=== PATIENT | male | born 1985 | race Caucasian/White ===

== ENCOUNTER 2017-08-15 11:06 | Emergency (ER) | payer SELFPAY ==
[2017-08-15 11:11] VITALS: BP 157/60; PULSE 96; RESP 22; TEMP 98.2; O2SAT 99
[2017-08-15] MEDS ORDERED: SODIUM CHLORIDE 0.9% FLUSH 10 ML FLUSH IVF PRN (11:15)
[2017-08-15] MEDS ORDERED: LORazepam 2 MG/ML VIAL IM ONE (11:15)
[2017-08-15] MEDS ORDERED: HALOPERIDOL LACTATE 5 MG/ML AMP IM ONE (11:15)
[2017-08-15 11:16] VITALS: BP 157/60; PULSE 96; RESP 22; TEMP 98.2; O2SAT 99
--- NOTE | 2017-08-15 11:39 | PD ---
HPI . Altered mental status Chief Complaint: Altered Mental Status Time Seen by Provider: 11:07 Travel History International Travel<30 days: No Contact w/Intl Traveler<30days: No Traveled to known affect area: No History of Present Illness HPI This patient is brought to us from [place] for evaluation of altered mental status. He was reportedly found naked beside his car in a parking lot. He felt that his girlfriend was with him but she is actually in [place]. This patient has no physical complaints. He denies any drug ingestion. He does admit to smoking cigarettes and smoking marijuana. He denies alcohol use. No further history is obtainable from this patient. [facility] Past Medical History Seizures: Yes ?: Not Past Surgical History Surgical History: No Previous Surgery Social History Alcohol Use: No Tobacco Use: Yes Substance Use: Yes (unknown substances) Allergies-Medications (Allergen,Severity, Reaction): Coded Allergies: No Known Allergies (Unverified , 08/15/17) Review of Systems ROS Limitations: Intoxication, Uncooperative Physical Exam Narrative GENERAL: Patient is very agitated. At one point, he left his room and had to be physically restrained by the computer security manager. He is dirty. SKIN: warm/dry. Intact. HEAD: Normocephalic. Atraumatic. EYES: Pupils equal and round. No scleral icterus. No injection or drainage. ENT: No nasal bleeding or discharge. Mucous membranes pink and moist. NECK: Trachea midline. Full range of motion without pain.. CARDIOVASCULAR: Regular rate and rhythm. Heart sounds are normal. RESPIRATORY: No accessory muscle use. Clear to auscultation. Breath sounds equal bilaterally. GASTROINTESTINAL: Abdomen soft. Nontender. Bowel sounds present. Nondistended. MUSCULOSKELETAL: No obvious deformities. NEUROLOGICAL: Awake and alert. No obvious cranial nerve deficits. Motor grossly within normal limits. Normal speech. PSYCHIATRIC: Unable to assess. Data Data Last Documented VS Vital Signs Date Time Temp Pulse Resp B/P (MAP) Pulse Ox O2 Delivery O2 Flow Rate FiO2 08/15/17 12:00 86 21 116/55 (75) 98 Room Air 08/15/17 11:16 98.2 Orders Orders Complete Blood Count With Diff (08/15/17 11:07) Comprehensive Metabolic Panel (08/15/17 11:07) Thyroid Stimulating Hormone (08/15/17 11:07) Oximetry (08/15/17 11:07) Iv Access Insert/Monitor (08/15/17 11:07) Cath For Specimen (08/15/17 11:07) Sodium Chloride 0.9% Flush (Ns Flush) (08/15/17 11:15) Haloperidol Inj (Haldol Inj) (08/15/17 11:15) Lorazepam Inj (Ativan Inj) (08/15/17 11:15) Drug Screen, Random Urine (08/15/17 11:07) Alcohol (Ethanol) (08/15/17 11:07) Tylenol (Acetaminophen) (08/15/17 11:07) Salicylates (Aspirin) (08/15/17 11:07) Restraints Violent (08/15/17 11:29) Electrocardiogram (08/15/17 11:14) Labs Laboratory Tests Test 08/15/17 11:40 White Blood Count 12.6 TH/MM3 Red Blood Count 4.57 MIL/MM3 Hemoglobin 13.5 GM/DL Hematocrit 39.1 % Mean Corpuscular Volume 85.6 FL Mean Corpuscular Hemoglobin 29.6 PG Mean Corpuscular Hemoglobin Concent 34.6 % Red Cell Distribution Width 13.6 % Platelet Count 219 TH/MM3 Mean Platelet Volume 8.4 FL Neutrophils (%) (Auto) 56.4 % Lymphocytes (%) (Auto) 28.9 % Monocytes (%) (Auto) 13.3 % Eosinophils (%) (Auto) 0.8 % Basophils (%) (Auto) 0.6 % Neutrophils # (Auto) 7.1 TH/MM3 Lymphocytes # (Auto) 3.6 TH/MM3 Monocytes # (Auto) 1.7 TH/MM3 Eosinophils # (Auto) 0.1 TH/MM3 Basophils # (Auto) 0.1 TH/MM3 CBC Comment AUTO DIFF Differential Comment AUTO DIFF CONFIRMED Blood Urea Nitrogen 18 MG/DL Creatinine 1.39 MG/DL Random Glucose 64 MG/DL Total Protein 8.2 GM/DL Albumin 3.9 GM/DL Calcium Level 8.8 MG/DL Alkaline Phosphatase 85 U/L Aspartate Amino Transf (AST/SGOT) 37 U/L Alanine Aminotransferase (ALT/SGPT) 22 U/L Total Bilirubin 0.6 MG/DL Sodium Level 142 MEQ/L Potassium Level 5.1 MEQ/L Chloride Level 110 MEQ/L Carbon Dioxide Level 18.9 MEQ/L Anion Gap 13 MEQ/L Estimat Glomerular Filtration Rate 59 ML/MIN Thyroid Stimulating Hormone 3rd Gen 0.589 uIU/ML Salicylates Level 2.1 MG/DL Urine Opiates Screen POS Acetaminophen Level LESS THAN 2.0 MCG/ML Urine Barbiturates Screen NEG Urine Amphetamines Screen POS Urine Benzodiazepines Screen NEG Urine Cocaine Screen POS Urine Cannabinoids Screen NEG Ethyl Alcohol Level LESS THAN 3 MG/DL MDM Medical Decision Making Medical Screen Exam Complete: Yes Emergency Medical Condition: Yes Differential Diagnosis Differential diagnosis of altered mental status includes but is not limited to infection, electrolyte abnormality, neurological event, intoxication Narrative Course This patient is brought to us by EMS from [place] for evaluation of altered mental status. He appears intoxicated on drugs. He is currently requiring violent restraints. Haldol and Ativan have been ordered. So far, his drug screen is positive for opiates, amphetamines and cocaine. CBC & BMP Diagram 08/15/17 11:40 Total Protein 8.2, Albumin 3.9, Calcium Level 8.8, Alkaline Phosphatase 85, Aspartate Amino Transf (AST/SGOT) 37, Alanine Aminotransferase (ALT/SGPT) 22, Total Bilirubin 0.6 He is now medically clear. He is now sleeping it off. Diagnosis Primary Impression: Polysubstance abuse Patient Instructions: Altered Mental Status (ED), General Instructions, Polysubstance Abuse (ED) Disposition: 01 DISCHARGE HOME Condition: Stable Cathy Martinez MD Aug 15, 2017 11:39
[2017-08-15 12:00] VITALS: BP 116/55; PULSE 86; RESP 21; O2SAT 98
[2017-08-15 12:14] LABS: AUTOMATED NEUTROPHIL # 7.1 TH/MM3 (1.8-7.7); BASOPHIL # 0.1 TH/MM3 (0-0.2); BASOPHIL % 0.6 % (0.0-2.0); EOSINOPHIL # 0.1 TH/MM3 (0-0.4); EOSINOPHIL % 0.8 % (0.0-4.0); HEMATOCRIT 39.1 % (39.0-51.0); HEMOGLOBIN 13.5 GM/DL (13.0-17.0); LYMPH % 28.9 % (9.0-44.0); LYMPHOCYTE # 3.6 TH/MM3 (1.0-4.8); MEAN CELL VOLUME 85.6 FL (80.0-100.0); MEAN CORPUSCULAR HEMOGLOBIN 29.6 PG (27.0-34.0); MEAN CORPUSCULAR HGB CONC 34.6 % (32.0-36.0); MEAN PLATELET VOLUME 8.4 FL (7.0-11.0); MONO % 13.3 % (0.0-8.0); MONOCYTE # 1.7 TH/MM3 (0-0.9); NEUT % 56.4 % (16.0-70.0); PLATELET COUNT 219 TH/MM3 (150-450); RED BLOOD COUNT 4.57 MIL/MM3 (4.50-5.90); RED CELL DISTRIBUTION WIDTH 13.6 % (11.6-17.2); WHITE BLOOD COUNT 12.6 TH/MM3 (4.0-11.0)
[2017-08-15 12:24] LABS: ALKALINE PHOSPHATASE 85 U/L (45-117); TOTAL BILIRUBIN ADULT 0.6 MG/DL (0.2-1.0); TOTAL PROTEIN 8.2 GM/DL (6.4-8.2)
[2017-08-15 12:30] VITALS: BP 128/72; PULSE 82; RESP 18; O2SAT 98
[2017-08-15 12:45] LABS: ALBUMIN 3.9 GM/DL (3.4-5.0); ALT (GPT) 22 U/L (12-78); BICARBONATE 18.9 MEQ/L (21.0-32.0); BLOOD UREA NITROGEN 18 MG/DL (7-18); CALCIUM 8.8 MG/DL (8.5-10.1); CHLORIDE 110 MEQ/L (98-107); CREATININE 1.39 MG/DL (0.60-1.30); GLOMERULAR FILTRATION RATE 59 ML/MIN (>89); GLUCOSE,RANDOM 64 MG/DL (74-106); SODIUM (NA) 142 MEQ/L (136-145)
[2017-08-15 12:48] LABS: ACETAMINOPHEN LESS THAN 2.0 MCG/ML (10.0-30.0); AST (GOT) 37 U/L (15-37)
--- NOTE | 2017-08-15 14:10 | EKG ---
Date Performed: 08/15/2017 Time Performed: 11:14:32 PTAGE: 32 years EKG: Sinus rhythm MODERATE VOLTAGE CRITERIA FOR LVH, CONSIDER NORMAL VARIANT BORDERLINE ECG NO PREVIOUS TRACING DOCTOR: Kwame Isaac Interpretating Date/Time 08/15/2017 14:08:01
[2017-08-15 15:30] VITALS: BP 116/60; PULSE 112; RESP 18; O2SAT 98
[2017-08-15 17:15] VITALS: BP 109/64; PULSE 79; RESP 20; O2SAT 99
--- NOTE | 2017-08-16 21:17 | EKG ---
Date Performed: 08/15/2017 Time Performed: 16:58:28 PTAGE: 32 years EKG: Sinus rhythm WITH SINUS ARRHYTHMIA NORMAL ECG INTERPRETATION BASED ON A DEFAULT AGE OF 40 YEARS NO PREVIOUS TRACING DOCTOR: Matheus Kraus Interpretating Date/Time 08/16/2017 21:15:37
== END 2017-08-16 00:06 | disposition home or self-care (01) ==
LOC: NEPE 11:06 → NEDAMB 08-16 00:06
DX: R41.82 Altered mental status, unspecified (principal); F11.10 Opioid abuse, uncomplicated; F15.10 Other stimulant abuse, uncomplicated; F14.10 Cocaine abuse, uncomplicated; I49.9 Cardiac arrhythmia, unspecified; F17.210 Nicotine dependence, cigarettes, uncomplicated; Z78.1 Physical restraint status; Z72.0 Tobacco use; Z86.69 Personal history of other diseases of the nervous system and sense organs
CPT/HCPCS: 80053; 80307; 84443; 85025; 93005; 96372; 99285; J1630; J2060; P9612